=== PATIENT | male | born 1980 | race Two or more races ===

== ENCOUNTER 2019-02-09 09:47 | Emergency (ER) | payer MEDICAID ==
[~2019-02-09] VITALS: Ht 177.8 cm; Wt 74.0 kg
[2019-02-09 09:49] VITALS: BP 117/74
--- NOTE | 2019-02-09 10:03 | NUR ---
PT STATES HE HAD SOME VIRUS FOR THE PAST 3 DAYS, PT STATES HE WAS VOMITTING AND HAVING DIARHHEA AT THE SAME TIME AND LAID IN BED FOR THREE DAYS, HE HAS GOTTON OVER IT PER HIS REPORT. HE IS HERE FOR A WORK RELEASE.
== END 2019-02-09 10:12 | disposition home or self-care (01) ==
LOC: ED 10:05
DX: Z02.79 Encounter for issue of other medical certificate (principal)
CPT/HCPCS: 99281

== ENCOUNTER 2019-03-15 21:00 | Emergency (ER) | payer MEDICAID ==
[~2019-03-15] VITALS: Ht 177.8 cm; Wt 71.3 kg
[2019-03-15 21:09] VITALS: BP 144/81
== END 2019-03-15 21:27 | disposition home or self-care (01) ==
LOC: ED 21:21
DX: Z00.00 Encounter for general adult medical examination without abnormal findings (principal); Z87.19 Personal history of other diseases of the digestive system
CPT/HCPCS: 99281

== ENCOUNTER 2020-04-15 08:45 | Emergency (ER) | payer SELFPAY ==
[~2020-04-15] VITALS: Ht 180.3 cm; Wt 69.0 kg
[2020-04-15 08:47] VITALS: BP 142/72
== END 2020-04-15 10:19 | disposition home or self-care (01) ==
LOC: ED 09:50
DX: L24.9 Irritant contact dermatitis, unspecified cause (principal)
CPT/HCPCS: 99283

== ENCOUNTER 2020-05-02 19:01 | Emergency (ER) | payer MEDICAID, OTHER ==
[~2020-05-02] VITALS: Ht 177.8 cm; Wt 67.0 kg
[2020-05-02 19:12] VITALS: BP 125/80
== END 2020-05-02 19:27 | disposition home or self-care (01) ==
LOC: ED 19:15
DX: R21 Rash and other nonspecific skin eruption (principal)
CPT/HCPCS: 99281

== ENCOUNTER 2021-01-15 12:30 | Emergency (ER) | payer SELFPAY ==
[~2021-01-15] VITALS: Ht 177.8 cm; Wt 70.3 kg
[2021-01-15 12:48] VITALS: BP 115/79
--- NOTE | 2021-01-15 13:30 | NUR ---
PT STATES YESTERDAY AFTERNOON NOTICED 3 LITTLE BUMPLS AND WERE ITCHING AND TODAY WOKE UP AND WAS ALL OVER MY FACE AND OTHER ARM AND THE BUMPS WERE ITCHY AND BURNING.
--- NOTE | 2021-01-15 13:46 | NUR ---
Patient given discharge instructions and they have confirmed that they understand the instructions. Patient ambulatory with steady gait. No questions at time of discharge.
== END 2021-01-15 13:48 | disposition home or self-care (01) ==
LOC: ED 13:11
DX: L23.89 Allergic contact dermatitis due to other agents (principal)
CPT/HCPCS: 99283; Q0177